=== PATIENT | female | born 1950 | race Caucasian/White ===

== ENCOUNTER → 2024-09-08 | Outpatient (CLI) | payer MEDICARE, OTHER, SELFPAY ==
--- NOTE | 2024-09-08 11:10 | CT_ITS ---
PROCEDURE: EXTREMITY UPPER WITHOUT CONTRA 09/08/2024 REASON FOR EXAM: DISPLACE FX OF SHAFT OF RIGHT CLAVIVAL TECHNIQUE: Axial CT images of the right shoulder/clavicle obtained without intravenous contrast. Coronal and Sagittal reconstruction series were provided. One or more dose reduction techniques were used (e.g., Automated exposure control, adjustment of the mA and/or kV according to patient size, use of iterative reconstruction technique RADIATION DOSE SUMMARY: CTDlvol: 24.96 mGy DLP: 519.28 mGycm COMPARISON: None FINDINGS: Bones: There is evidence of a comminuted fracture of the distal lateral aspect of the right clavicle with overlapping of the fracture fragments. Joints: Unremarkable Soft Tissues: Soft tissue swelling. CT/Extremity Upper without Contra IMPRESSION: Comminuted fracture of the distal lateral portion of the right clavicle with ov erriding of the fracture fragments and soft tissue swelling. Reading Location: [id number]
== END | disposition home or self-care (01) ==
LOC: CT 10:55
PROVIDERS: PCP Internal Medicine; Referring Provider Orthopaedic Surgery; Visit Provider Orthopaedic Surgery
DX: S42.021A Displaced fracture of shaft of right clavicle, initial encounter for closed fracture (principal); X58.XXXA Exposure to other specified factors, initial encounter
CPT/HCPCS: 73200

== ENCOUNTER 2024-09-15 11:00 | Outpatient (RCR) | payer MEDICARE, OTHER, SELFPAY ==
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
== END 2024-09-15 19:00 | disposition home or self-care (01) ==
LOC: PT 11:00
PROVIDERS: PCP Internal Medicine
DX: S42.021D Displaced fracture of shaft of right clavicle, subsequent encounter for fracture with routine healing (principal)
CPT/HCPCS: 97110; 97140; 97162; 97530